=== PATIENT | female | born 1970 | race African-American/Black ===

== ENCOUNTER 2017-10-02 10:54 | Emergency (ER) | payer BC ==
[~2017-10-02] VITALS: Ht 154.9 cm; Wt 123.8 kg
[~2017-10-02 10:54] MED LIST: CHOLESTEROL MED; COZAAR 25 MG TA25 MG PO; FISH OIL 1,0001 EAC5 PO; FLEXERIL PO; FUROSEMIDE PO; IBUPROFEN 600600 M1 PO; MOTION RELIEF25 MG PO; NORCO 5-325 TA1 EACH PO; ONE-A-DAY WOME1 EAC1 PO; VALIUM2 MG PO
[2017-10-02] MEDS ORDERED: CALAN80 MG PO (11:29)
[2017-10-02] MEDS ORDERED: ALDACTONE25 MG PO (11:29)
[2017-10-02] MEDS ORDERED: [UNRECOGNIZED DRUG - OTHER] (11:30)
[2017-10-02 11:32] LABS: ABSOLUTE NEUTROPHILS 1.8 thou/uL (1.4-8.2); BASOPHILS 0.8 % (0.0-2.0); EOSINOPHILS 2.9 % (0.0-3.0); HEMATOCRIT 34.6 % (37.0-47.0); HEMOGLOBIN 11.2 gm/dL (12.0-15.0); LYMPHOCYTES 49.6 % (24.0-44.0); MCHC 32.3 g/dL (28.0-37.0); MCV 77.2 fL (80.0-100.0); MONOCYTES 8.5 % (1.0-8.0); PLATELET COUNT 333 thou/uL (150-400); POLYS 38.2 % (36.0-66.0); RBC 4.49 mil/uL (4.20-5.00); RDW 16.2 % (10.5-14.5); WBC 4.8 thou/uL (4.0-11.0)
[2017-10-02 11:42] LABS: CALCIUM 8.7 mg/dL (8.5-10.1); CREATININE 0.7 mg/dL (0.6-1.0); POTASSIUM 3.7 mmol/L (3.5-5.1)
[2017-10-02 11:49] LABS: ALBUMIN 3.7 g/dL (3.4-5.0); TOTAL BILIRUBIN 1.1 mg/dL (<0.1-1.0); TOTAL PROTEIN 7.5 g/dL (6.4-8.2)
[2017-10-02 13:19] LABS: URINE BILIRUBIN NEGATIVE (Negative); URINE BLOOD TRACE (Negative); URINE CLARITY CLEAR; URINE COLOR YELLOW; URINE GLUCOSE-RANDOM* NEGATIVE (Negative); URINE KETONES NEGATIVE (Negative); URINE LEUKOCYTES-REFLEX NEGATIVE (Negative); URINE NITRITE-REFLEX NEGATIVE (Negative); URINE PROTEIN (DIPSTICK) NEGATIVE (Negative); URINE UROBILINOGEN 0.2 E.U./dl (0.2-1.0)
[2017-10-02] MEDS ORDERED: IBUPROFEN 800800 M1 PO (13:31)
== END 2017-10-02 14:02 | disposition home or self-care (01) ==
LOC: ER 10:54
PROVIDERS: Physician Assistant
DX: R10.31 Right lower quadrant pain (principal); I10 Essential (primary) hypertension; Z90.49 Acquired absence of other specified parts of digestive tract; Z90.710 Acquired absence of both cervix and uterus

== ENCOUNTER 2019-09-01 19:22 | Emergency (ER) | payer OTHER, BC ==
[~2019-09-01] VITALS: Ht 154.9 cm; Wt 126.1 kg
[~2019-09-01 19:22] MED LIST changes: +ALDACTONE25 MG PO; +CALAN80 MG PO; +IBUPROFEN 800800 M1 PO; +[UNRECOGNIZED DRUG - OTHER]
[2019-09-01] MEDS ORDERED: LIPITOR10 MG PO (21:41)
[2019-09-01] MEDS ORDERED: PRINIVIL10 MG PO (21:41)
[2019-09-01] MEDS ORDERED: HYDROCHLOROTHIA25 M2 PO (21:42)
[2019-09-01] MEDS ORDERED: METFORMIN HCL500 MG PO (21:43)
[2019-09-01] MEDS ORDERED: FLEXERIL PO (21:43)
[2019-09-01 22:40] LABS: ABSOLUTE NEUTROPHILS 2.3 thou/uL (1.4-8.2); BASOPHILS 0.9 % (0.0-2.0); EOSINOPHILS 3.6 % (0.0-3.0); HEMATOCRIT 34.9 % (37.0-47.0); HEMOGLOBIN 11.1 gm/dL (12.0-15.0); LYMPHOCYTES 46.2 % (24.0-44.0); MCH 25.3 pg (26.0-34.0); MCHC 31.8 g/dL (28.0-37.0); MCV 79.7 fL (80.0-100.0); PLATELET COUNT 289 thou/uL (150-400); POLYS 41.3 % (36.0-66.0); RBC 4.37 mil/uL (4.20-5.00); RDW 16.2 % (10.5-14.5); WBC 5.4 thou/uL (4.0-11.0)
[2019-09-01 22:47] LABS: CALCIUM 8.7 mg/dL (8.5-10.1); CREATININE 0.7 mg/dL (0.6-1.0); POTASSIUM 3.7 mmol/L (3.5-5.1)
[2019-09-01 22:53] LABS: ALBUMIN 3.4 g/dL (3.4-5.0); MAGNESIUM 1.9 mg/dL (1.8-2.4); TOTAL BILIRUBIN 0.6 mg/dL (<0.1-1.0); TOTAL PROTEIN 7.4 g/dL (6.4-8.2)
[2019-09-02 00:06] VITALS: BP 135/77
== END 2019-09-02 00:07 | disposition home or self-care (01) ==
LOC: ER 19:22
PROVIDERS: Physician Assistant
DX: M79.605 Pain in left leg (principal); M79.604 Pain in right leg; D64.9 Anemia, unspecified; I10 Essential (primary) hypertension; Z90.710 Acquired absence of both cervix and uterus; Z90.49 Acquired absence of other specified parts of digestive tract; E66.01 Morbid (severe) obesity due to excess calories; Z68.43 Body mass index [BMI] 50.0-59.9, adult